=== PATIENT | female | born 1985 | race African-American/Black ===

== ENCOUNTER 2017-09-26 15:38 | Emergency (ER) | payer OTHER ==
[~2017-09-26 15:38] MED LIST: ATIVAN0.5 MG PO; CYCLOBENZAPRINE5 MG PO; IBUPROFEN 800800 M1 PO; TRAMADOL 50 MG50 MG PO; VENTOLIN HFA 1818 GM INH
== END 2017-09-26 17:06 | disposition left against medical advice (07) ==
LOC: ER 15:38
DX: Z53.21 Procedure and treatment not carried out due to patient leaving prior to being seen by health care provider (principal); J45.909 Unspecified asthma, uncomplicated; Z90.49 Acquired absence of other specified parts of digestive tract

== ENCOUNTER 2018-06-02 23:43 | Emergency (ER) | payer OTHER ==
[~2018-06-02] VITALS: Ht 160 cm; Wt 127.0 kg
[2018-06-03] MEDS ORDERED: PENICILLIN V P500 MG PO (00:06)
[2018-06-03] MEDS ORDERED: ACETAMINOPHEN-1 EAC1 PO (00:06)
[2018-06-03] MEDS ORDERED: NAPROSYN500 MG PO (00:06)
[2018-06-03 00:19] VITALS: BP 180/98
== END 2018-06-03 00:19 | disposition home or self-care (01) ==
LOC: ER 23:43
DX: K02.9 Dental caries, unspecified (principal); K04.7 Periapical abscess without sinus

== ENCOUNTER 2018-08-23 11:32 | Emergency (ER) | payer OTHER ==
[~2018-08-23] VITALS: Ht 160 cm; Wt 122.5 kg
[~2018-08-23 11:32] MED LIST changes: +ACETAMINOPHEN-1 EAC1 PO; +NAPROSYN500 MG PO; +PENICILLIN V P500 MG PO
[2018-08-23] MEDS ORDERED: ULTRAM 50MG TAB50 MG PO (13:45)
[2018-08-23 14:01] VITALS: BP 130/72
== END 2018-08-23 14:07 | disposition home or self-care (01) ==
LOC: ER 11:32
DX: S83.8X2A Sprain of other specified parts of left knee, initial encounter (principal); J45.909 Unspecified asthma, uncomplicated; Z90.49 Acquired absence of other specified parts of digestive tract; Z98.890 Other specified postprocedural states; W00.0XXA Fall on same level due to ice and snow, initial encounter; Y93.89 Activity, other specified; Y92.89 Other specified places as the place of occurrence of the external cause; Y99.8 Other external cause status

== ENCOUNTER 2019-06-21 20:36 | Emergency (ER) | payer BC, OTHER ==
[~2019-06-21] VITALS: Ht 160 cm; Wt 127.0 kg
[~2019-06-21 20:36] MED LIST changes: +ULTRAM 50MG TAB50 MG PO
[2019-06-21] MEDS ORDERED: MOBIC15 MG PO (22:10)
[2019-06-21] MEDS ORDERED: MUPIROCIN15 GM TOP (22:10)
[2019-06-21 22:25] LABS: HEMATOCRIT 39.8 % (37.0-47.0); HEMOGLOBIN 12.9 gm/dL (12.0-15.0); MCH 28.7 pg (26.0-34.0); MCHC 32.5 g/dL (28.0-37.0); MCV 88.2 fL (80.0-100.0); RBC 4.51 mil/uL (4.20-5.00); RDW 14.5 % (10.5-14.5); WBC 11.6 thou/uL (4.0-11.0)
[2019-06-21 22:36] LABS: CALCIUM 8.5 mg/dL (8.5-10.1); POTASSIUM 3.1 mmol/L (3.5-5.1)
[2019-06-21 22:42] LABS: ALBUMIN 3.5 g/dL (3.4-5.0); TOTAL BILIRUBIN 0.4 mg/dL (<0.1-1.0); TOTAL PROTEIN 7.7 g/dL (6.4-8.2)
[2019-06-21] MEDS ORDERED: POTASSIUM20 PO (22:47)
[2019-06-21 22:58] VITALS: BP 135/81
--- NOTE | 2019-06-22 08:06 | EKG ---
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
== END 2019-06-21 23:01 | disposition home or self-care (01) ==
LOC: ER 20:36
PROVIDERS: Physician Assistant
DX: I10 Essential (primary) hypertension (principal); L73.9 Follicular disorder, unspecified; R42 Dizziness and giddiness; J45.909 Unspecified asthma, uncomplicated; Z98.51 Tubal ligation status; Z98.890 Other specified postprocedural states